=== PATIENT | female | born 1950 | race Caucasian/White ===

== ENCOUNTER → 2017-04-28 | Outpatient (CLI) | payer BC ==
[~2017-04-28] MED LIST: Budeprion Xl300 MG PO; HYDCHL25; HYDCHL50 PO; LISI5; MAGNESIUM250 MG PO; METO50ER PO; Multiple Vitam1 EAC1 PO; PRAV20; Pravachol40 MG PO; Prinivil10 MG PO; RANI150; Ranitidine HCl150 M1 PO
[2017-04-29 12:55] LABS: HPV Genotype 16 Not Detected (NOTDET); HPV Genotype 18 Not Detected (NOTDET)
[2017-05-06 12:42] LABS: HPV High Risk Other Not Detected (NOTDET)
== END | disposition home or self-care (01) ==
LOC: LAB 13:27
PROVIDERS: Obstetrics & Gynecology Gynecology
DX: Z12.72 Encounter for screening for malignant neoplasm of vagina (principal)
CPT/HCPCS: 87624; G0123

== ENCOUNTER → 2018-03-23 | Outpatient (CLI) | payer MEDICARE | END | disposition home or self-care (01) | LOC: LAB 17:56 → LAB SHORT 17:56 | DX: J02.9 Acute pharyngitis, unspecified (principal) | CPT/HCPCS: 87081; 87430 ==

== ENCOUNTER 2018-07-07 07:26 | Day surgery (SDC) | payer MEDICARE, OTHER ==
[~2018-07-07] VITALS: Ht 160 cm; Wt 63.4 kg
[~2018-07-07 07:26] MED LIST changes: +ALBU90OI61 INH; +Dyazide 37.5-21 EACH PO; +Fiber Therapy0.52 GM PO; +Hair, Skin & N1 EACH PO; +JUBLIA4 ML TOP; +METO25 PO; +MONT10T PO; +Micro-K10 MEQ PO; +OMEPRAZOLE MAGN20 MG PO; +VITAMIN D32000 UNIT PO; +Vivelle-Dot1 EAC1 TD
--- NOTE | 2018-07-07 12:24 | NUR ---
07/07/18 1224 Ashtyn Rivera SIMETHECONE USED DURING PROCEDURE.
== END 2018-07-07 09:42 | disposition home or self-care (01) ==
LOC: ORSCSDS 07:26
PROVIDERS: Internal Medicine Gastroenterology
PROC: 0DBP8ZX Excision of Rectum, Via Natural or Artificial Opening Endoscopic, Diagnostic (ICD-10-PCS; principal; 2018-07-07 08:45)
DX: Z12.11 Encounter for screening for malignant neoplasm of colon (principal); D12.8 Benign neoplasm of rectum; Z83.71 Family history of colonic polyps; I10 Essential (primary) hypertension; E78.00 Pure hypercholesterolemia, unspecified; K21.9 Gastro-esophageal reflux disease without esophagitis; Z79.899 Other long term (current) drug therapy
CPT/HCPCS: J2704; J7120

== ENCOUNTER 2023-03-24 10:28 | Emergency (ER) | payer MEDICARE ==
[~2023-03-24] VITALS: Ht 157.5 cm; Wt 65.0 kg
[2023-03-24 11:48] LABS: BASOPHILS ABSOLUTE AUTO 0.02 K/mm3 (0.00-0.23); BASOPHILS PERCENT AUTO 0 % (0-2); EOSINOPHILS ABSOLUTE AUTO 0.09 K/mm3 (0.00-0.68); EOSINOPHILS PERCENT AUTO 1 % (0-6); Hematocrit 39.5 % (33.0-51.0); Hemoglobin 13.7 g/dL (11.5-16.0); IMMATURE GRAN ABSOLUTE AUTO 0.01 K/mm3 (0.00-0.10); IMMATURE GRAN PERCENT AUTO 0 % (0-1); LYMPHOCYTES PERCENT AUTO 33 % (21-46); MONOCYTES ABSOLUTE AUTO 0.52 K/mm3 (0.16-1.47); MONOCYTES PERCENT AUTO 8 % (4-13); Mean Corpuscular HGB 30.5 pg (26.0-34.0); Mean Corpuscular HGB Conc 34.7 g/dL (31.5-36.5); Mean Corpuscular Volume 88 fL (80-100); Mean Platelet Volume 8.8 fL (9.1-12.4); NEUTROPHILS ABSOLUTE AUTO 3.71 K/mm3 (1.96-9.15); NEUTROPHILS PERCENT AUTO 57 % (41-73); Platelet Count 264 K/mm3 (150-400); RDW Coefficient Variation 12.4 % (11.7-14.2); RDW Standard Deviation 40.1 fL (35.1-46.3); Red Blood Cell Count 4.49 M/mm3 (3.80-5.20); White Blood Cell Count 6.45 K/mm3 (4.00-11.30)
[2023-03-24 12:09] LABS: Albumin, Blood 3.4 g/dL (3.4-5.0); Albumin/Globulin Ratio 1.1 (0.8-1.8); Bilirubin, Total 0.3 mg/dL (0.1-1.0); Bun/Creatinine Ratio 19.1 (12.0-20.0); Calcium, Blood 8.3 mg/dL (8.5-10.1); Creatinine, Blood 0.84 mg/dL (0.40-1.00); Globulin, Blood 3.1 g/dL (2.2-4.0); Total Protein, Blood 6.5 g/dL (6.4-8.2)
[2023-03-24 12:17] LABS: Source, Urine Clean Catch
[2023-03-24 12:36] LABS: Appearance, Urine Clear (Clear); Bilirubin, Urine Neg (Neg); Blood, Urine Neg (Neg); Color, Urine Yellow (P-Yellow); Glucose Qualitative, Urine Neg (Neg); Ketones, Urine Neg (Neg); Leukocyte Esterase, Urine Neg (Neg); Nitrite, Urine Neg (Neg); Protein, Urine Neg (Neg); Urobilinogen, Urine NORM (Normal); pH, Urine 6.5 (5.0-8.0)
[2023-03-24 13:06] VITALS: BP 181/73
== END 2023-03-24 14:22 | disposition home or self-care (01) ==
LOC: ER 10:28
PROVIDERS: Physician Assistant
DX: G43.909 Migraine, unspecified, not intractable, without status migrainosus (principal); I10 Essential (primary) hypertension; E78.5 Hyperlipidemia, unspecified; Z79.899 Other long term (current) drug therapy
CPT/HCPCS: 70450; 80053; 81003; 85025; 93005; 93010; 96372; 99284-25; J0780

== ENCOUNTER 2024-01-02 07:03 | Day surgery (SDC) | payer MEDICARE, OTHER ==
[~2024-01-02] VITALS: Ht 160 cm; Wt 116.0 kg
[~2024-01-02 07:03] MED LIST changes: +LOSA50; +MAGCHL64ER; +METAMUCIL POWD575 GM; +OMEP20ER PO
[2024-01-02] MEDS ORDERED: Lactated Ringer's 1,000 ML IV ONE ×2 (07:34→07:47)
[2024-01-02] MEDS ORDERED: propofoL 50 ML IV ONE (07:55)
[2024-01-02 09:43] VITALS: BP 105/50
== END 2024-01-02 09:16 | disposition home or self-care (01) ==
LOC: ORSCSDS 07:03
PROVIDERS: Internal Medicine Gastroenterology
PROC: 0DBK8ZX Excision of Ascending Colon, Via Natural or Artificial Opening Endoscopic, Diagnostic (ICD-10-PCS; principal; 2024-01-02 08:00)
PROC: 0DBN8ZX Excision of Sigmoid Colon, Via Natural or Artificial Opening Endoscopic, Diagnostic (ICD-10-PCS; principal; 2024-01-02 08:00)
DX: Z09 Encounter for follow-up examination after completed treatment for conditions other than malignant neoplasm (principal); Z86.0101 Personal history of adenomatous and serrated colon polyps; Z83.710 Family history of adenomatous and serrated polyps; D12.2 Benign neoplasm of ascending colon; D12.5 Benign neoplasm of sigmoid colon; K21.9 Gastro-esophageal reflux disease without esophagitis; I10 Essential (primary) hypertension; Z79.899 Other long term (current) drug therapy
CPT/HCPCS: 88305; J2704; J7120

== ENCOUNTER 2025-02-25 09:06 | Day surgery (SDC) | payer MEDICARE, OTHER ==
[~2025-02-25] VITALS: Ht 160 cm; Wt 58.1 kg
[2025-02-25] MEDS ORDERED: METAMUCIL PO (10:00)
[2025-02-25] MEDS ORDERED: SPIRONOLACTONE25 MG PO (10:02)
[2025-02-25] MEDS ORDERED: Tranexamic Acid 100 ML IV ONE (11:01)
[2025-02-25] MEDS ORDERED: EPINEPhrine HCl 1 MG / ML 30ML Vial ONE (12:01)
[2025-02-25] MEDS ORDERED: Lidocaine 1%-Epineph 1:200000 30 ML SDV ONE (12:02)
[2025-02-25] MEDS ORDERED: Ondansetron HCl 2 MG / ML 2ML Vial ONE ×2 (12:06→13:52)
[2025-02-25] MEDS ORDERED: Rocuronium Bromide 10 MG/ML 5ML Injection IV ONE ×2 (12:06→13:52)
[2025-02-25] MEDS ORDERED: Metoclopramide HCl 5MG / ML 2ML Vial ONE ×2 (12:06→13:52)
[2025-02-25] MEDS ORDERED: FentaNYL Citrate 50 MCG/ML 2 ML Injection ONE ×3 (12:07→14:58)
[2025-02-25] MEDS ORDERED: Sugammadex Sodium 200 MG/2ML SDV (100 MG/ML) ONE (13:52)
--- NOTE | 2025-02-25 14:16 | NUR ---
02/25/25 1416 HERNANDEZ DUENAS PT MOVING ARMS, ENCOURAGING HER TO KEEP FROM RUBBING FACE AND NOSE. SHE REMOVED HER MUSTACHE DRESSING.
--- NOTE | 2025-02-25 14:41 | NUR ---
02/25/25 1441 HERNANDEZ DUENAS ENCOURAGING PT TO TAKE DEEP BREATH O2 SAT DROP TO 91%.
[2025-02-25 15:12] VITALS: BP 178/80
== END 2025-02-25 16:04 | disposition home or self-care (01) ==
LOC: ORSCSDS 09:06
PROVIDERS: Otolaryngology
PROC: 09SM0ZZ Reposition Nasal Septum, Open Approach (ICD-10-PCS; principal; 2025-02-25 11:30)
PROC: 09TQ4ZZ Resection of Right Maxillary Sinus, Percutaneous Endoscopic Approach (ICD-10-PCS; principal; 2025-02-25 11:30)
PROC: 09TR4ZZ Resection of Left Maxillary Sinus, Percutaneous Endoscopic Approach (ICD-10-PCS; principal; 2025-02-25 11:30)
DX: J32.8 Other chronic sinusitis (principal); J34.2 Deviated nasal septum; I10 Essential (primary) hypertension; K21.9 Gastro-esophageal reflux disease without esophagitis; Z79.899 Other long term (current) drug therapy
CPT/HCPCS: 88305; 88311; A9270; C2625; J0165; J2405; J2704; J2765; J3010